=== PATIENT | male | born 1985 | race Caucasian/White ===

== ENCOUNTER → 2017-12-14 | Outpatient (CLI) | payer OTHER ==
[~2017-12-14] VITALS: Ht 165.1 cm; Wt 40.8 kg
[~2017-12-14] MED LIST: ACETAMINOPHEN325 M1 PO; ALKA-SELTZER P1 EAC7 PO; ATIVAN1 MG PO; CHEWABLE-VITE1 EACH PO; DIASTAT ACUDIAL10 MG PR; DULCOLAX10 MG PR; FLEET ENEMA-AD118 ML PR; LAMICTAL150 M1 PO; MILK OF MAGN PO; MIRALAX17 GM PO; RANITIDINE HCL150 MG PO; SILTUSSIN DM C473 ML PO; TEGRETOL200 MG PO; VITAMIN D31000 UNI2 PO
== END | disposition home or self-care (01) ==
LOC: AMB 14:00
DX: K22.2 Esophageal obstruction (principal); K44.9 Diaphragmatic hernia without obstruction or gangrene; K29.50 Unspecified chronic gastritis without bleeding; Z68.1 Body mass index [BMI] 19.9 or less, adult; F99 Mental disorder, not otherwise specified; Z86.19 Personal history of other infectious and parasitic diseases; H54.7 Unspecified visual loss; G40.909 Epilepsy, unspecified, not intractable, without status epilepticus